=== PATIENT | male | born 1960 | race Caucasian/White ===

== ENCOUNTER 2019-07-09 17:38 | Emergency (ER) | payer BC, OTHER ==
[2019-07-09 18:06] LABS: Absolute Lymphocytes (CBC) 1.8 K/uL (0.7-4.9); Basophils % 0.7 % (0-1.3); Hematocrit 42.6 % (39.6-49.0); Lymphocytes % 23.6 % (15.3-44.8); MPV 8.3 fL (7.6-11.3); RBC Red Blood Cell Count 4.82 M/uL (4.33-5.43)
[2019-07-09 18:07] LABS: Protime INR 1.04
[2019-07-09 18:25] LABS: ALT/SGPT 24 U/L (12-78); AST/SGOT 15 U/L (15-37); Albumin 3.9 g/dL (3.4-5.0); Alkaline Phosphatase 54 U/L (45-117); BUN Blood Urea Nitrogen 18 mg/dL (7-18); Bicarbonate 26 mmol/L (21-32); Bilirubin Direct 0.1 mg/dL (0-0.2); Bilirubin Total 0.5 mg/dL (0.2-1.0); Glucose Level 107 mg/dL (74-106); Magnesium 2.2 mg/dL (1.8-2.4); NT PRO-BNP 25 pg/mL (<125); Protein, Total 7.5 g/dL (6.4-8.2); Sodium Level 140 mmol/L (136-145); Troponin (Emerg Dept Use Only) < 0.02 ng/mL (0.0-0.045)
--- NOTE | 2019-07-09 18:29 | RAD REPORT ---
EXAM DESCRIPTION: Swathi Single View07/09/2019 6:04 pm CLINICAL HISTORY: Chest pain COMPARISON: none FINDINGS: The lungs appear clear of acute infiltrate. The heart is normal size IMPRESSION: No acute abnormalities displayed
--- NOTE | 2019-07-09 18:30 | RAD REPORT ---
EXAM DESCRIPTION: US - Abdomen Exam Limited - 07/09/2019 6:21 pm CLINICAL HISTORY: Abdominal pain. COMPARISON: None. FINDINGS: The gallbladder wall is not thickened. A gallstone is not seen. The biliary tree is normal caliber. IMPRESSION: Unremarkable gallbladder ultrasound.
--- NOTE | 2019-07-09 22:00 | ER ---
Nurse's Notes [facility] Name: Martin Muñoz Age: 58 yrs Sex: Male : 1960 Arrival Date: 07/09/2019 Time: 17:38 Bed 19 Private MD: Ced Carter Diagnosis: Chest pain, unspecified Presentation: 07/09 17:40 Presenting complaint: Patient states: "Last night I was having pressure in my chest and aj1 tightness, it was a minor pain like heart burn in the center of my chest. I took an Dior-seltzer and it didn't clear up, so I slept on the cough and the pressure stayed all night. I had a doctor's appointment today, so I told the doctor everything, and they did an EKG and it did show abnormal and that's why I'm here. Transition of care: patient was not received from another setting of care. Onset of symptoms was July 09, 2019. Risk Assessment: Do you want to hurt yourself or someone else? Patient reports no desire to harm self or others. Initial Sepsis Screen: Does the patient meet any 2 criteria? No. Patient's initial sepsis screen is negative. Does the patient have a suspected source of infection? No. Patient's initial sepsis screen is negative. Care prior to arrival: None. 17:40 Method Of Arrival: Ambulatory aj1 17:40 Acuity: KOKI 2 aj1 Triage Assessment: 17:42 General: Appears in no apparent distress. comfortable, Behavior is calm, cooperative, aj1 appropriate for age. Pain: Complains of pain in mid-sternal area Pain currently is 1 out of 10 on a pain scale. Neuro: Level of Consciousness is awake, alert, obeys commands. Cardiovascular: Patient's skin is warm and dry. Respiratory: Airway is patent Respiratory effort is even, unlabored, Respiratory pattern is regular, symmetrical. Historical: - Allergies: 17:42 No Known Allergies; aj1 - Home Meds: 17:42 Flonase Nasal [Active]; aj1 - PMHx: 17:42 None; aj1 - PSHx: 17:42 Knee surgery; aj1 - Immunization history:: Flu vaccine is not up to date. - Coronavirus screen:: The patient has NOT traveled to [place] in the past 14 days. - Social history:: Smoking status: Patient/guardian denies using tobacco. - Ebola Screening: : Patient denies travel to an Ebola-affected area in the 21 days before illness onset. Screenin:40 Abuse screen: Denies threats or abuse. Denies injuries from another. Nutritional sv screening: No deficits noted. Tuberculosis screening: No symptoms or risk factors identified. Fall Risk None identified. Assessment: 17:40 General: Appears in no apparent distress. comfortable, well groomed, well developed, sv Behavior is calm, cooperative, appropriate for age. Pain: Complains of pain in mid-sternal area Pain does not radiate. Pain currently is 1 out of 10 on a pain scale. Quality of pain is described as aching, Pain began 1 day ago. Is intermittent. Neuro: Level of Consciousness is awake, alert, obeys commands, Oriented to person, place, time, situation, Moves all extremities. Full function Gait is steady, Speech is normal. Cardiovascular: Heart tones S1 S2 present Patient's skin is warm and dry. Respiratory: Airway is patent Respiratory effort is even, unlabored, Respiratory pattern is regular, symmetrical, Breath sounds are clear bilaterally. Derm: Skin is intact, Skin is pink, warm \\T\\ dry. Musculoskeletal: Range of motion: intact in all extremities. 17:40 GI: Reports indigestion. sv 19:35 General: Appears in no apparent distress. Behavior is calm, cooperative, appropriate ea for age. Pain: Denies pain. Neuro: Level of Consciousness is awake, alert, obeys commands, Oriented to person, place, time, situation. Cardiovascular: Patient's skin is warm and dry. Respiratory: Airway is patent Respiratory effort is even, unlabored, Respiratory pattern is regular, symmetrical. Derm: Skin is pink, warm \\T\\ dry. 20:15 Reassessment: Patient and/or family updated on plan of care and expected duration. Pain ea level reassessed. Patient is alert, oriented x 3, equal unlabored respirations, skin warm/dry/pink. 21:55 Reassessment: Patient and/or family updated on plan of care and expected duration. Pain ea level reassessed. Patient is alert, oriented x 3, equal unlabored respirations, skin warm/dry/pink. 22:11 Reassessment: Patient and/or family updated on plan of care and expected duration. Pain ea level reassessed. Patient is alert, oriented x 3, equal unlabored respirations, skin warm/dry/pink. Discharge instruction given to patient, verbalized the understanding of instruction. Pt left ED ambulatory accompanied by family. Vital Signs: 17:42 BP 162 / 95; Pulse 74; Resp 18; Temp 98.1; Pulse Ox 100% on R/A; Weight 92.99 kg (R); aj1 Height 5 ft. 10 in. (177.80 cm) (R); Pain 1/10; 18:10 BP 139 / 94; Pulse 74; Resp 18; Pulse Ox 99% on R/A; sv 19:49 BP 120 / 76; Pulse 70; Resp 18; Pulse Ox 99% on R/A; ea 20:15 BP 120 / 76; Pulse 67; Resp 18; Temp 98; Pulse Ox 99% ; ea 22:00 BP 127 / 87; Pulse 87; Resp 18; Pulse Ox 100% ; ea 17:42 Body Mass Index 29.41 (92.99 kg, 177.80 cm) aj1 ED Course: 17:38 Patient arrived in ED. rg4 17:38 Ced Carter DO is Private Physician. rg4 17:40 Patient has correct armband on for positive identification. Placed in gown. Bed in low sv position. Call light in reach. Adult w/ patient. monitor worker on. Pulse ox on. NIBP on. Door closed. Warm blanket given. Head of bed elevated. 17:40 Inserted saline lock: 20 gauge in right antecubital area, using aseptic technique. sv Blood collected. Flushed right antecubital with 5 ml normal saline. 17:40 Patient maintains SpO2 saturation greater than 95% on room air. sv 17:42 Triage completed. aj1 17:42 Arm band placed on Patient placed in an exam room. aj1 17:45 Britt Canseco FNP-C is PSYCHIATRICP. snw 17:45 Pedro Bright MD is Attending Physician. snw 18:04 Isabella Guadalupe, SALVADOR is Primary Nurse. sv 18:04 Basic Metabolic Panel Sent. sv 18:04 CBC with Diff Sent. sv 18:04 LFT's Sent. sv 18:04 Magnesium Sent. sv 18:04 NT PRO-BNP Sent. sv 18:04 PT-INR Sent. sv 18:04 Troponin (emerg Dept Use Only) Sent. sv 18:04 XRAY Chest (1 view) Sent. sv 18:09 Awaiting lab results, Awaiting radiology results. sv 18:17 US Abdomen Limited Sent. sv 18:56 Primary Nurse role handed off by Isabella Guadalupe RN sv 19:04 Simona Castellano, SALVADOR is Primary Nurse. ea 21:12 Troponin (emerg Dept Use Only) Sent. ds4 21:59 Ced Carter DO is Referral Physician. snw 22:10 No provider procedures requiring assistance completed. IV discontinued, intact, ea bleeding controlled, No redness/swelling at site. Pressure dressing applied. Administered Medications: No medications were administered Outcome: 22:00 Discharge ordered by MD. snw 22:12 Discharged to home ambulatory, with significant other. ea 22:12 Condition: stable 22:12 Instructed on discharge instructions, follow up and referral plans. Demonstrated understanding of instructions, follow-up care. 22:13 Patient left the ED. ea Signatures: Arlyn Rojas RN RN aj1 Isabella Guadalupe, SALVADOR FRANCO sv Britt Canseco, DREDGE PUMP OPERATOR-C DREDGE PUMP OPERATOR-Csnw Reid Hernadez ds4 Caty Delcid rg4 Simona Castellano RN RN ea Corrections: (The following items were deleted from the chart) 18:08 17:40 Pain: Complains of pain in mid-sternal area Pain does not radiate. Pain currently sv is 1 out of 10 on a pain scale. Quality of pain is described as aching, Pain began 2-3 days ago. Is intermittent, sv
--- NOTE | 2019-07-09 22:01 | EDPHYS ---
Physician Documentation [facility] Name: Martin Muñoz Age: 58 yrs Sex: Male : 1960 Arrival Date: 07/09/2019 Time: 17:38 Bed 19 Private MD: Ced Carter ED Physician Pedro Bright HPI: 07/09 17:55 This 58 yrs old Male presents to ER via Ambulatory with complaints of Chest snw Pain. 17:55 Onset: The symptoms/episode began/occurred suddenly, last night, and became persistent. snw Associated signs and symptoms: Pertinent positives: chest pain, "indigestion". The patient has experienced a previous episode, and the symptoms today are exactly the same, March 2019. The patient has been recently seen by a physician: the patient's primary care provider, earlier today, with similar presenting complaints, and was sent to the [facility] Emergency Department for further evaluation. Historical: - Allergies: 17:42 No Known Allergies; aj1 - Home Meds: 17:42 Flonase Nasal [Active]; aj1 - PMHx: 17:42 None; aj1 - PSHx: 17:42 Knee surgery; aj1 - Immunization history:: Flu vaccine is not up to date. - Coronavirus screen:: The patient has NOT traveled to [place] in the past 14 days. - Social history:: Smoking status: Patient/guardian denies using tobacco. - Ebola Screening: : Patient denies travel to an Ebola-affected area in the 21 days before illness onset. ROS: 17:54 Constitutional: Negative for fever, chills, and weight loss, Eyes: Negative for injury, snw pain, redness, and discharge, ENT: Negative for injury, pain, and discharge, Neck: Negative for injury, pain, and swelling. 17:54 Respiratory: Negative for shortness of breath, cough, wheezing, and pleuritic chest pain, Abdomen/GI: Negative for abdominal pain, nausea, vomiting, diarrhea, and constipation, Back: Negative for injury and pain, : Negative for injury, bleeding, discharge, and swelling, MS/Extremity: Negative for injury and deformity, Skin: Negative for injury, rash, and discoloration, Neuro: Negative for headache, weakness, numbness, tingling, and seizure, Psych: Negative for depression, anxiety, suicide ideation, homicidal ideation, and hallucinations. 17:54 Cardiovascular: Positive for chest pain, of the mid-sternal area, Negative for edema, orthopnea, palpitations, paroxysmal nocturnal dyspnea. Exam: 17:54 Constitutional: This is a well developed, well nourished patient who is awake, alert, snw and in no acute distress. Head/Face: Normocephalic, atraumatic. Eyes: Pupils equal round and reactive to light, extra-ocular motions intact. Lids and lashes normal. Conjunctiva and sclera are non-icteric and not injected. Cornea within normal limits. Periorbital areas with no swelling, redness, or edema. ENT: Nares patent. No nasal discharge, no septal abnormalities noted. Tympanic membranes are normal and external auditory canals are clear. Oropharynx with no redness, swelling, or masses, exudates, or evidence of obstruction, uvula midline. Mucous membranes moist. Neck: Trachea midline, no thyromegaly or masses palpated, and no cervical lymphadenopathy. Supple, full range of motion without nuchal rigidity, or vertebral point tenderness. No Meningismus. Chest/axilla: Normal chest wall appearance and motion. Nontender with no deformity. No lesions are appreciated. Cardiovascular: Regular rate and rhythm with a normal S1 and S2. No gallops, murmurs, or rubs. Normal PMI, no JVD. No pulse deficits. Respiratory: Lungs have equal breath sounds bilaterally, clear to auscultation and percussion. No rales, rhonchi or wheezes noted. No increased work of breathing, no retractions or nasal flaring. Abdomen/GI: Soft, non-tender, with normal bowel sounds. No distension or tympany. No guarding or rebound. No evidence of tenderness throughout. Back: No spinal tenderness. No costovertebral tenderness. Full range of motion. Skin: Warm, dry with normal turgor. Normal color with no rashes, no lesions, and no evidence of cellulitis. MS/ Extremity: Pulses equal, no cyanosis. Neurovascular intact. Full, normal range of motion. Neuro: Awake and alert, GCS 15, oriented to person, place, time, and situation. Cranial nerves II-XII grossly intact. Motor strength 5/5 in all extremities. Sensory grossly intact. Cerebellar exam normal. Normal gait. Psych: Awake, alert, with orientation to person, place and time. Behavior, mood, and affect are within normal limits. Vital Signs: 17:42 BP 162 / 95; Pulse 74; Resp 18; Temp 98.1; Pulse Ox 100% on R/A; Weight 92.99 kg (R); aj1 Height 5 ft. 10 in. (177.80 cm) (R); Pain 1/10; 18:10 BP 139 / 94; Pulse 74; Resp 18; Pulse Ox 99% on R/A; sv 19:49 BP 120 / 76; Pulse 70; Resp 18; Pulse Ox 99% on R/A; ea 20:15 BP 120 / 76; Pulse 67; Resp 18; Temp 98; Pulse Ox 99% ; ea 22:00 BP 127 / 87; Pulse 87; Resp 18; Pulse Ox 100% ; ea 17:42 Body Mass Index 29.41 (92.99 kg, 177.80 cm) aj1 MDM: 17:57 Patient medically screened. aura 17:57 Differential diagnosis: gastroenteritis, gastritis, [place], [place], angina. Data reviewed: [facility] vital signs, nurses notes. Data interpreted: school examiner: rate is 80 beats/min, rhythm is normal sinus rhythm, with no ectopy, Interpretation: normal rhythm, Pulse oximetry: on room air is 100 %. Interpretation: normal. Counseling: I had a detailed discussion with the patient and/or guardian regarding: the historical points, exam findings, and any diagnostic results supporting the discharge/admit diagnosis, the presence of at least one elevated blood pressure reading (>120/80) during this emergency department visit, lab results, radiology results. 07/09 17:46 Order name: Basic Metabolic Panel [facility] 07/09 17:46 Order name: CBC with Diff [facility] 07/09 17:46 Order name: LFT's [facility] 07/09 17:46 Order name: Magnesium [facility] 07/09 17:46 Order name: NT PRO-BNP [facility] 07/09 17:46 Order name: PT-INR [facility] 07/09 17:46 Order name: Troponin (emerg Dept Use Only) [facility] 07/09 18:09 Order name: CBC with Automated Diff; Complete Time: 18:37 EDMS 07/09 18:09 Order name: Protime (+INR); Complete Time: 18:37 EDMS 07/09 18:28 Order name: Basic Metabolic Panel; Complete Time: 18:37 EDMS 07/09 18:28 Order name: Liver (Hepatic) Function; Complete Time: 18:37 EDMS 07/09 18:28 Order name: Troponin (Emerg Dept Use Only); Complete Time: 18:37 EDMS 07/09 18:28 Order name: NT PRO-BNP; Complete Time: 18:37 EDMS 07/09 18:28 Order name: Magnesium; Complete Time: 18:37 EDMS 07/09 17:46 Order name: XRAY Chest (1 view) snw 07/09 17:46 Order name: EKG; Complete Time: 17:47 snw 07/09 17:46 Order name: Cardiac monitoring; Complete Time: 18:04 snw 07/09 17:46 Order name: EKG - Nurse/Tech; Complete Time: 18:04 snw 07/09 17:46 Order name: IV Saline Lock; Complete Time: 18:04 snw 07/09 17:46 Order name: Labs collected and sent; Complete Time: 18:04 snw 07/09 17:46 Order name: O2 Per Protocol; Complete Time: 18:04 snw 07/09 17:46 Order name: O2 Sat Monitoring; Complete Time: 18:11 snw 07/09 17:54 Order name: US Abdomen Limited snw 07/09 18:35 Order name: RAD; Complete Time: 18:37 EDMS 07/09 18:35 Order name: US; Complete Time: 18:37 EDMS 07/09 18:48 Order name: Repeat Cardiac Enzymes at: 2100; Complete Time: 21:11 snw 07/09 20:39 Order name: EKG; Complete Time: 20:39 w 07/09 20:56 Order name: Troponin (emerg Dept Use Only) ea 07/09 21:58 Order name: Troponin (Emerg Dept Use Only); Complete Time: 21:59 EDMS Administered Medications: No medications were administered Disposition: 07/09/19 22:00 Discharged to Home. Impression: Chest pain, unspecified. - Condition is Stable. - Discharge Instructions: Nonspecific Chest Pain, Gastroesophageal Reflux Disease, Adult, Hypertension, Aspirin and Your Heart. - Medication Reconciliation Form, Thank You Letter, Antibiotic Education, Prescription Opioid Use, Work release form form. - Follow up: Ced Carter DO; When: 2 - 3 days; Reason: Recheck today's complaints, Continuance of care, Re-evaluation by your physician. Follow up: Emergency Department; When: As needed; Reason: Worsening of condition. Addendum: 07/12/2019 07:56 Co-signature as Attending Physician, Pedro Bright MD I agree with the assessment and c cade plan of care. Signatures: Dispatcher [employer] EDArlyn Price RN RN aj1 Pedro Bright MD MD cha Therrien, Shelly, LOADER HELPER-C LOADER HELPER-Csnw Simona Castellano RN RN ea Corrections: (The following items were deleted from the chart) 07/09 22:13 22:00 07/09/2019 22:00 Discharged to Home. Impression: Chest pain, unspecified. ea Condition is Stable. Forms are Medication Reconciliation Form, Thank You Letter, Antibiotic Education, Prescription Opioid Use. Follow up: Ced Carter; When: 2 - 3 days; Reason: Recheck today's complaints, Continuance of care, Re-evaluation by your physician. Follow up: Emergency Department; When: As needed; Reason: Worsening of condition. snw
[2019-07-09 22:57] VITALS: TEMP 98
[2019-07-09 23:01] VITALS: BP 127/87; O2SAT 100
--- NOTE | 2019-07-11 14:29 | EKG ---
Test Date: 2019-07-09 Test Time: 21:17:42 Clinical Assistant Professor: BANDAR MEASUREMENT RESULTS: Intervals: Rate: 58 [place]: 154 QRSD: 84 QT: 428 QTc: 420 [place]: P: 55 [place]: 154 QRS: -34 T: 38 INTERPRETIVE STATEMENTS: Sinus bradycardia Left axis deviation Abnormal ECG Compared to ECG 07/09/2019 17:49:19 Left-axis deviation now present Sinus rhythm no longer present Electronically Signed On 07-11-19 14:28:06 GIS ANALYST by Gil Carter
--- NOTE | 2019-07-11 14:29 | EKG ---
Test Date: 2019-07-09 Test Time: 17:49:19 Brush Holder Inspector: BOGDAN MEASUREMENT RESULTS: Intervals: Rate: 62 CO: 150 QRSD: 84 QT: 402 QTc: 408 [place]: P: 67 CO: 150 QRS: -28 T: 61 INTERPRETIVE STATEMENTS: Normal sinus rhythm Normal ECG No previous ECG available for comparison Electronically Signed On 07-11-19 14:28:08 LOOP SEWER by Gil Carter
== END 2019-07-09 22:13 | disposition home or self-care (01) ==
LOC: ER 17:38
DX: R07.9 Chest pain, unspecified (principal)
CPT/HCPCS: 36415; 71045; 76705; 80048; 80076; 83735; 83880; 84484; 85025; 85610; 93005; 99285